=== PATIENT | female | born 1955 | race African-American/Black ===

== ENCOUNTER 2020-10-31 08:23 | Emergency (ER) | payer BC ==
[~2020-10-31] VITALS: Ht 177.8 cm; Wt 99.8 kg
[2020-10-31] MEDS ORDERED: HYDR25TA4 PO (08:34)
[2020-10-31] MEDS ORDERED: OLME20TA13 PO (08:34)
[2020-10-31] MEDS ORDERED: AMLO5TAB4 PO (08:34)
[2020-10-31] MEDS ORDERED: IBUPROFEN 600 MG TABLET ONE (08:45)
[2020-10-31] MEDS ORDERED: IBUPROFEN 600 MG TABLET PO ONE (08:45)
--- NOTE | 2020-10-31 08:45 | NUR ---
Patient walked in to ER from home complaining of left elbow pain. patient states she was wieghing herself when she fell. States she broke her fall with her arm.
--- NOTE | 2020-10-31 08:47 | NUR ---
xray being done at this time at bedside.
[2020-10-31] MEDS ORDERED: ONDANSETRON 4 MG/2 ML VIAL IV ONE (09:00)
[2020-10-31] MEDS ORDERED: MORPHINE SULFATE 2 MG/1 ML DISP.SYRIN IV ONE (09:00)
[2020-10-31] MEDS ORDERED: PROPOFOL 200 MG/20 ML BOTTLE ONE (09:14)
[2020-10-31] MEDS ORDERED: MORPHINE SULFATE 4 MG/1 ML DISP.SYRIN ONE (09:30)
--- NOTE | 2020-10-31 09:30 | NUR ---
Coscious sedation performed with left elbow reduction, see chart for further details Addendum: 10/31/20 at 1018 by TESSA conscious sedation
[2020-10-31] MEDS ORDERED: ONDANSETRON 4 MG/2 ML VIAL ONE (09:31)
[2020-10-31] MEDS ORDERED: HYDROMORPHONE 1 MG/1 ML DISP.SYRIN ONE (09:38)
[2020-10-31] MEDS ORDERED: PROPOFOL 200 MG/20 ML BOTTLE IV ONE (10:00)
[2020-10-31] MEDS ORDERED: HYDROMORPHONE 1 MG/1 ML DISP.SYRIN IV ONE (10:00)
--- NOTE | 2020-10-31 10:00 | NUR ---
left arm placed in long arm splint and shooulder sling, Patient is alert and oriented and noted facetiming with "boyfriend" at this time.
--- NOTE | 2020-10-31 10:33 | NUR ---
Patient discharged to home in stable condition. Patient walkd to car by RN, steady gait noted. Written and verbal after care instructions given. CD of X-ray given for follow up visit. patient states pain relief. no signs of acute distress. Patient verbalizes understanding of instructions. Stressed follow up or return to ER for worsening s/s.
[2020-10-31 10:37] VITALS: BP 153/77
== END 2020-10-31 10:30 | disposition home or self-care (01) ==
LOC: ER 08:23
DX: S52.102A Unspecified fracture of upper end of left radius, initial encounter for closed fracture (principal); S52.612A Displaced fracture of left ulna styloid process, initial encounter for closed fracture; S53.105A Unspecified dislocation of left ulnohumeral joint, initial encounter; W10.9XXA Fall (on) (from) unspecified stairs and steps, initial encounter; Y92.89 Other specified places as the place of occurrence of the external cause
CPT/HCPCS: 73070; G0500; J1170; J2270; J2405; J3490; J7030